=== PATIENT | female | born 1940 | race African-American/Black ===

== ENCOUNTER 2016-10-11 07:11 | Emergency (ER) | payer MEDICARE ==
[2016-10-11] MEDS ORDERED: CYCLOBENZAPRINE HCL 10 MG TABLET PO ONE (07:46)
[2016-10-11] MEDS ORDERED: IBUPROFEN 800 MG TABLET PO ONE (07:46)
--- NOTE | 2016-10-11 09:22 | ER Document Report ---
HPI - HPI Patient complains to provider of: back pain Pain Level: 4 Context: Patient is a 75-year-old female presents emergency Department complaining of low back pain with left leg radiation. Patient states that on Wednesday of this past week she was walking and she stepped over a ditch. She denies any fall or trauma. She states that she woke up on Wednesday she had mild low back pain that over the course of the past couple of days that is now radiating down the back of her left leg. She states she is a history of back pain and issues with sciatica on the left side that previously required injections in her back. He hasn't had to do that for about a year. She has been able to ambulate with a normal gait. She has not taken anything for pain. She denies any urinary incontinence/stool incontinence, saddle anesthesia. Past medical history significant for hypertension Primary care physician is Dr. Anthony TORRES Skin Color: Normal Past Medical History - Social History Smoking Status: Never Smoker Chew tobacco use (# tins/day): No Frequency of alcohol use: None Drug Abuse: None Family History: Reviewed & Not Pertinent Patient has suicidal ideation: No Patient has homicidal ideation: No - Past Medical History Cardiac Medical History: Reports: Hx Hypertension Renal/ Medical History: Denies: Hx Peritoneal Dialysis Vertical Provider Document - CONSTITUTIONAL Agree With Documented VS: Yes Exam Limitations: No Limitations Notes: PHYSICAL EXAM GENERAL: Alert, interacts well. HEAD: Normocephalic, atraumatic. NECK: Full range of motion. Supple. Trachea midline. LUNGS: Clear to auscultation bilaterally, no wheezes, rales, or rhonchi. No respiratory distress. HEART: Regular rate and rhythm. No murmurs, gallops, or rubs. Back: Evidence of paraspinous muscle tenderness on the left lumbar paraspinous musculature sciatica reproducible to deep palpation along the left leg. Otherwise strength is 5 out of 5 bilaterally in both upper and lower extremities. Full range of motion. Able to ambulate and gait stable EXTREMITIES: Moves all 4 extremities spontaneously. No edema, radial and dorsalis pedis pulses 2/4 bilaterally. No cyanosis. NEUROLOGICAL: Alert and oriented x4. Normal speech. PSYCH: Normal affect, normal mood. SKIN: Warm, dry, normal turgor. No rashes or lesions noted. - INFECTION CONTROL TRAVEL OUTSIDE OF THE [place] IN LAST 30 DAYS: No - RESPIRATORY O2 Sat by Pulse Oximetry: 97 Course - Re-evaluation Re-evalutation: 10/11/16 19:48 The patient presents with low back pain without signs of spinal cord compression , cauda equina syndrome, infection, aneurysm, or other serious etiology. The patient is neurologically intact. Given the extremely low risk of these diagnoses further testing and evaluation for these possibilities does not appear to be indicated at this time. The patient has been instructed to return if the symptoms worsen or change in any way. - Vital Signs Vital signs: Temp Pulse Resp BP Pulse Ox 97.5 F 63 16 181/68 H 97 10/11/16 07:18 10/11/16 07:18 10/11/16 07:18 10/11/16 07:18 10/11/16 07:18 Discharge - Discharge Clinical Impression: Muscle strain Condition: Good Disposition: HOME, SELF-CARE Instructions: Low Back Pain ([facility]), Muscle Strain ([facility]), Warm Packs ([facility]), Muscle Relaxers ([facility]), Stretching Exercises for the Back ([facility]) Additional Instructions: Please take your medications as prescribed Follow-up with your primary care provider as needed Prescriptions: Cyclobenzaprine HCl [Flexeril 5 mg Tablet] 5 mg PO TID #20 tablet Ibuprofen [Motrin 800 mg Tablet] 800 mg PO Q8H PRN #30 tab PRN Reason: Forms: Elevated Blood Pressure Referrals: STARR PRINCE MD [Primary Care Provider] - Follow up as needed
[2016-10-11 09:31] VITALS: BP 176/72
== END 2016-10-11 09:30 | disposition home or self-care (01) ==
LOC: ER 07:11
DX: T14.8 Other injury of unspecified body region (principal); X58.XXXA Exposure to other specified factors, initial encounter; M54.5 Low back pain; I10 Essential (primary) hypertension
CPT/HCPCS: 99283; A9270 ×2

== ENCOUNTER → 2016-10-13 | Outpatient (CLI) | payer MEDICARE | LOC: RAD 13:19 | PROVIDERS: ATTEND Physician Assistant | DX: M54.42 Lumbago with sciatica, left side (principal) | CPT/HCPCS: 72110 ==

== ENCOUNTER 2018-01-26 07:15 | Day surgery (SDC) | payer MEDICARE ==
[~2018-01-26 07:15] MED LIST: KETOROLAC TROMETHAMINE 0.45% 4 DROP/0.4 ML DROPERETTE OD PRN; MIDAZOLAM 2 MG/2 ML INJ ONE
[2018-01-26] MEDS: CYCLOPENTOLATE 0.2%/PHENYLEPHRINE 1% OPH SOLN 2 ML OD PRN ×3 (07:57→08:17)
[2018-01-26] MEDS: TROPICAMIDE 1% OPH SOLN 3 ML OD PRN ×3 (07:57→08:17)
[2018-01-26] MEDS: BESIFLOXACIN HCL 0.6% OPH SUSP 5 ML BOTTLE OD PRN ×4 (07:57→08:54)
[2018-01-26] MEDS: TETRACAINE HCL 0.5% OPH SOLN 0.6 ML DROPERETTE OD PRN ×3 (07:58→08:29)
[2018-01-26] MEDS: CHONDR SU A NA/HYALUR INTRAOC KIT (SURGICARE) ONE ×2 (08:42)
[2018-01-26] MEDS: LIDOCAINE 1% INJ-PF (10 MG/ML) 30 ML SDV ONE ×2 (08:42)
[2018-01-26] MEDS: EPINEPHRINE INJ/PF 1 MG/1 ML AMPULE ONE ×2 (08:42)
[2018-01-26] MEDS: TOBRAMYCIN SULFATE/DEXAMETH OPH OINTMENT 3.5 GM ONE ×2 (08:54)
== END 2018-01-26 09:30 | disposition home or self-care (01) ==
LOC: SC 07:15
PROVIDERS: ATTEND Ophthalmology
DX: H25.11 Age-related nuclear cataract, right eye (principal); I10 Essential (primary) hypertension; K21.9 Gastro-esophageal reflux disease without esophagitis; E89.2 Postprocedural hypoparathyroidism; Z79.899 Other long term (current) drug therapy; Z88.2 Allergy status to sulfonamides; Z88.0 Allergy status to penicillin; Z91.040 Latex allergy status
CPT/HCPCS: 66984; V2630; J2250; J3490 ×3; A9270; J0171; 142

== ENCOUNTER 2018-04-13 07:40 | Day surgery (SDC) | payer MEDICARE ==
[~2018-04-13 07:40] MED LIST changes: +CHONDR SU A NA/HYALUR INTRAOC KIT (SURGICARE) ONE; +EPINEPHRINE INJ/PF 1 MG/1 ML AMPULE ONE; -KETOROLAC TROMETHAMINE 0.45% 4 DROP/0.4 ML DROPERETTE OD PRN; +KETOROLAC TROMETHAMINE 0.45% 4 DROP/0.4 ML DROPERETTE OS PRN; +LIDOCAINE 1% INJ-PF (10 MG/ML) 30 ML SDV ONE
[2018-04-13] MEDS: BESIFLOXACIN HCL 0.6% OPH SUSP 5 ML BOTTLE OS PRN ×4 (08:16→09:17)
[2018-04-13] MEDS: TROPICAMIDE 1% OPH SOLN 3 ML OS PRN ×3 (08:16→08:36)
[2018-04-13] MEDS: CYCLOPENTOLATE 0.2%/PHENYLEPHRINE 1% OPH SOLN 2 ML OS PRN ×3 (08:16→08:36)
[2018-04-13] MEDS: TETRACAINE HCL 0.5% OPH SOLN 0.6 ML DROPERETTE OS PRN ×3 (08:17→08:53)
[2018-04-13] MEDS: TOBRAMYCIN SULFATE/DEXAMETH OPH OINTMENT 3.5 GM ONE ×2 (09:17)
== END 2018-04-13 09:59 | disposition home or self-care (01) ==
LOC: SC 07:40
PROVIDERS: ATTEND Ophthalmology
DX: H25.12 Age-related nuclear cataract, left eye (principal); Z98.41 Cataract extraction status, right eye; I10 Essential (primary) hypertension; Z88.2 Allergy status to sulfonamides; Z88.0 Allergy status to penicillin; Z91.040 Latex allergy status
CPT/HCPCS: 66984; V2630; J2250; J3490 ×3; A9270; J0171; 142

== ENCOUNTER → 2018-06-24 | Outpatient (CLI) | payer MEDICARE ==
--- NOTE | 2018-06-24 14:38 | WOMENS IMAGING REPORT ---
EXAM DESCRIPTION: BONE DENSITY HIP/SPINE COMPLETED DATE/TIME: 06/24/2018 1:29 pm REASON FOR STUDY: E83.52 HYPERCALCEMIA/E21.3 HYPERPARATHYROIDISM, UNSPECIFIED E83.52 HYPERCALCEMIA E21.3 HYPERPARATHYROIDISM, UNSPECIFIED COMPARISON: 03/11/2010. TECHNIQUE: Dual-Energy X-ray Absorptiometry (DEXA) of the AP Spine and Hip. LIMITATIONS: None. FINDINGS: LUMBAR SPINE: The bone mineral density (BMD) measured from L1-L4 in the AP projection correlates with a T-score of -1.0, which is osteopenia as defined by the World Health Organization. HIP: The bone mineral density (BMD) measured in the left hip correlates with a T-score of -2.2, which is o steopenia as defined by the World Health Organization. IMPRESSION: 1. LUMBAR SPINE: OSTEOPENIA. 2. HIP: OSTEOPENIA. COMMENT: The World Health Organization defines low BMD as follows: T-score: Normal: Greater than -1.0 Osteopenia: Between -1.0 and -2.5 Osteoporosis: Less than -2.5 without fractures Established osteoporosis: Less than -2.5 with fractures In general, you may wish to consider: Diagnosis Treatment Follow-up DEXA Normal BMD Prevention 2-3 years Osteopenia Prevention/Therapy 1-2 years Osteoporosis Therapy Yearly TECHNICAL DOCUMENTATION: JOB ID: [id number]- All Rights Reserved Reading location - IP/workstation name: [email or web address]
== END ==
LOC: WI 12:59
PROVIDERS: ATTEND Internal Medicine Endocrinology, Diabetes & Metabolism
DX: E83.52 Hypercalcemia (principal); M85.88 Other specified disorders of bone density and structure, other site
CPT/HCPCS: 77080